=== PATIENT | female | born 1940 | race Two or more races ===

== ENCOUNTER 2022-02-09 16:14 | Inpatient (IN) | payer OTHER ==
[~2022-02-09] VITALS: Ht 162.6 cm; Wt 81.6 kg
[~2022-02-09 16:14] MED LIST: ACTOS45 MG PO; ADULT ASPIRIN81 MG PO; CENTRUM ADULTS1 EACH PO; EVISTA60 MG PO; LEVOTHYROXINE25 MCG PO; MICARDIS80 MG PO; PRILOSE PO; TRADJENTA5 MG PO; ZYRTEC10 M3 PO
[2022-02-11] MEDS ORDERED: PRILOSEC OTC20 MG PO (09:59)
[2022-02-14] MEDS ORDERED: INTEGRA F CAPS1 EACH PO (10:34)
[2022-02-14] MEDS ORDERED: LEVSIN/SL0.125 MG SL (10:34)
[2022-02-14] MEDS ORDERED: AMOX-CLAV 875-1 EACH PO (10:34)
== END 2022-02-14 12:00 | disposition home or self-care (01) | DRG 348 ==
LOC: SURH 02-11 05:25 → O/R 02-11 05:25 → SURG 02-11 10:15 → SURH 02-11 17:02
PROVIDERS: ADMIT Surgery; ATTEND Surgery
PROC: 0WQF4ZZ Repair Abdominal Wall, Percutaneous Endoscopic Approach (ICD-10-PCS; 2022-02-11)
PROC: 0DBB4ZZ Excision of Ileum, Percutaneous Endoscopic Approach (ICD-10-PCS; principal; 2022-02-11 10:15)
DX: Z43.2 Encounter for attention to ileostomy (principal); K57.20 Diverticulitis of large intestine with perforation and abscess without bleeding; K43.5 Parastomal hernia without obstruction or gangrene; R10.9 Unspecified abdominal pain; K64.8 Other hemorrhoids; Z20.822 Contact with and (suspected) exposure to COVID-19